=== PATIENT | female | born 1985 | race Caucasian/White ===

== ENCOUNTER 2017-06-20 15:44 | Emergency (ER) | payer SELFPAY ==
[2017-06-20 15:49] VITALS: BP 129/83
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
[2017-06-20] MEDS ORDERED: OXYC-865 PO (17:07)
== END 2017-06-20 17:39 | disposition home or self-care (01) ==
LOC: ER 15:57
DX: M25.562 Pain in left knee (principal)
CPT/HCPCS: 73562; 99283; L1830